=== PATIENT | male | born 1970 | race Caucasian/White ===

== ENCOUNTER 2021-05-03 13:27 | Emergency (ER) | payer OTHER ==
[~2021-05-03] VITALS: Ht 177.8 cm; Wt 81.7 kg
[~2021-05-03 13:27] MED LIST: FLEXERIL PO; MOTION-TIME25 MG PO; NORCO 5-325 TA1 EACH PO; PREDNISONE 10 M10 MG PO; TOPAMAX25 M1; VIMOVO 500-201 EACH
[2021-05-03 13:51] LABS: ABSOLUTE EOSINOPHILS 0.2 thou/uL (0.0-0.7); ABSOLUTE LYMPHOCYTES 2.2 thou/uL (0.8-5.3); ABSOLUTE MONOCYTES 0.6 thou/uL (0.0-1.2); ABSOLUTE NEUTROPHILS 3.4 thou/uL (1.6-8.1); BASOPHILS 0.7 %; EOSINOPHILS 2.4 %; HEMATOCRIT 42.4 % (42.0-52.0); HEMOGLOBIN 14.8 gm/dL (14.0-18.0); MCH 32.5 pg (26.0-34.0); MONOCYTES 9.5 %; MPV 7.4 fl. (7.2-11.1); NUCLEATED RBCS 0 /100WBC; PLATELET COUNT* 174 thou/uL (150-400); POLYS 53.4 %; RBC 4.56 mil/uL (4.50-6.00); RDW-CV 13.1 % (10.5-14.5); WBC 6.4 thou/uL (4.0-11.0)
[2021-05-03 14:34] LABS: CALCIUM 8.3 mg/dL (8.5-10.1); POTASSIUM 3.9 mmol/L (3.5-5.1)
[2021-05-03 14:47] LABS: ALBUMIN 3.7 g/dL (3.4-5.0); CK-MB MASS 0.9 ng/mL (<0.5-3.6); MAGNESIUM 2.1 mg/dL (1.8-2.4); TOTAL BILIRUBIN 0.3 mg/dL (<0.1-1.0); TOTAL PROTEIN 6.9 g/dL (6.4-8.2)
[2021-05-03 15:02] VITALS: BP 150/88
--- NOTE | 2021-05-03 16:09 | EKG ---
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
== END 2021-05-03 15:03 | disposition home or self-care (01) ==
LOC: M.ERS 13:27
PROVIDERS: Family Medicine
DX: R53.1 Weakness (principal); Z20.822 Contact with and (suspected) exposure to COVID-19